=== PATIENT | female | born 1940 | race Caucasian/White ===

== ENCOUNTER → 2018-04-06 | Outpatient (CLI) | payer MEDICARE, OTHER | LOC: GMAH 10:37 | PROVIDERS: ATTEND Family Medicine | DX: I10 Essential (primary) hypertension (principal) ==

== ENCOUNTER → 2019-11-23 | Outpatient (CLI) | payer MEDICARE, OTHER | LOC: GMA MATASK 11:05 | PROVIDERS: ATTEND Family Medicine | DX: I10 Essential (primary) hypertension (principal) ==

== ENCOUNTER 2020-01-23 13:50 | Inpatient (IN) | payer MEDICARE, OTHER ==
--- NOTE | 2020-01-23 14:48 | RAD ---
EXAM DESCRIPTION: Abdomen Series CLINICAL HISTORY: 79 years Female, decreased po, hypoxia COMPARISON: November 23, 2019 Findings: Two view(s)/radiograph(s) Cardiomegaly. Pulmonary vascular congestion. No pneumothorax. No pleural effusion. Diffuse bilateral interstitial airspace disease. No free air beneath the diaphragm. Nonobstructive bowel gas pattern. No suspicious calcification. No air-fluid level. No acute osseous abnormality. IMPRESSION: CHF with diffuse bilateral interstitial airspace disease which may be pulmonary edema or pneumonia. Electronically signed by: Nj Arteaga MD 01/23/2020 2:47 PM TRAVELING SALES REPRESENTATIVE
[2020-01-23] MEDS ORDERED: DEXAMETHASONE INJ 4 MG/ML VIAL IV ONE ×2 (15:46→19:14)
--- NOTE | 2020-01-23 16:39 | CT ---
EXAM DESCRIPTION: CTA Chest CLINICAL HISTORY: 79 years, Female, elevated ddimer, hypoxia COMPARISON: None TECHNIQUE: CT pulmonary angiography is performed with thin-section multi detector technique during rapid bolus administration of 75 mL of Optiray 320 IV contrast media. Multiplanar reformatted images are reviewed along with source images and maximum intensity projection three dimensional images which were created on a separate dedicated workstation and are stored in the patient's medical record. FINDINGS: Normal enhancement of pulmonary arteries. Normal enhancement of cardiac chambers. Early enhancement of the aorta is negative for aneurysm or dissection. Lung window images are positive for extensive groundglass pulmonary infiltrate consistent with pneumonia. Some patchy septal thickening is present. Few areas of consolidation. This could represent viral pneumonia including COVID Negative pneumonia. Correlate with viral titers. Few nodules in the left lower lobe likely infectious granulomas in the lateral basal segment and posterior basal segment measuring up to 7 mm. Follow-up is recommended to ensure stability or clearance. In the upper abdomen, upper abdominal viscera are unremarkable. No chest wall mass or rib fracture. No axillary or lower cervical adenopathy. Coronal and sagittal reformatted MIP images confirm normal pulmonary arterial enhancement. IMPRESSION: Extensive groundglass infiltration of the lungs consistent with pneumonia. Negative for evidence of pulmonary embolic disease. Clustered left lower lobe nodules likely granulomas. Follow-up recommended. This exam was performed according to our departmental dose-optimization program, which includes automated exposure control, adjustment of the mA and/or kV according to patient size and/or use of iterative reconstruction technique. Total DLP equals 742.36 mGycm. Electronically signed by: Lencho Poon MD 01/23/2020 4:38 PM CASINO CASHIER
[2020-01-23] MEDS ORDERED: AZITHROMYCIN IV 500 MG in SODIUM CHLORIDE 0.9% 250ML 250 ML IVPB ONE (16:44)
[2020-01-23] MEDS ORDERED: REMDESIVIR 200 MG in SODIUM CHLORIDE 0.9% 250ML 250 ML IVPB ONE (16:44)
[2020-01-23] MEDS ORDERED: IPRATROPIUM/ALBUTEROL 3 ML VIAL NEB ONE ×2 (16:44→19:25)
[2020-01-23] MEDS ORDERED: cefTRIAXone SODIUM 1 GM in SODIUM CHL 0.9% 50ML MIN-BAG+ 50 ML IVPB ONE (16:44)
[2020-01-23] MEDS ORDERED: SODIUM CHLORIDE 0.9% 1000ML 500 ML IVS ONE (16:46)
--- NOTE | 2020-01-23 16:54 | ED.PDOC ---
History of Present Illness - General Chief Complaint: Respiratory Problem Stated Complaint: Weakness/Shortness of breath Time Seen by Provider: 01/23/20 14:12 Source: patient Exam Limitations: no limitations - History of Present Illness Initial Comments: The patient 79 year-old female presented to emergency room secondary to 3 weeks of symptoms of simply not feeling good that drastically worsened over the last 3 days. Symptoms include mild nausea with some anorexia. The patient did have a runny nose and a cough a couple of weeks ago. She reports dyspnea on exertion for almost all about 3 weeks. Last 3 days however she reports shortness of breath at rest and increased dizziness and severe weakness. She has had increased cough as well over the last 2 days. Questionable fevers. She has had episodes of diaphoresis. Oxygen saturation upon arrival here was 75% on room air. She denies a history of any significant lung disease in the past. She denies a cardiac history. No palpitations no chest pain. No syncope but again possible near syncopal episodes of the last couple of days. Timing/Duration: unsure Severity: severe Improving Factors: rest Worsening Factors: movement Associated Symptoms: cough, headaches, loss of appetite, malaise, nausea/vomiting, shortness of breath, weakness Review of Systems - Review of Systems Constitutional: States: malaise, weakness - Generalized EENTM: States: nose congestion - Several weeks ago Respiratory: States: cough, short of breath Cardiology: States: no symptoms reported Gastrointestinal/Abdominal: States: other - Decreased oral intake Genitourinary: States: no symptoms reported Musculoskeletal: States: no symptoms reported Skin: States: no symptoms reported Neurological: States: headache Endocrine: States: no symptoms reported Hematologic/Lymphatic: States: no symptoms reported All other Systems: No Change from Baseline Past Medical History (General) - Patient Medical History Hx Seizures: No Hx Stroke: No Hx Dementia: No Hx Asthma: No Hx of COPD: No Hx Cardiac Disorders: No Hx Congestive Heart Failure: No Hx Pacemaker: No Hx Hypertension: No Hx Thyroid Disease: No Hx Diabetes: No Hx Gastroesophageal Reflux: No Hx Renal Disease: No Hx Cancer: No Hx of HIV: No Hx Hepatitis C: No Hx MRSA: No Surgical History: no surgical history - Vaccination History Hx Tetanus, Diphtheria Vaccination: No Hx Influenza Vaccination: No Hx Pneumococcal Vaccination: No Immunizations Up to Date: No - Social History Hx Tobacco Use: No Hx Chewing Tobacco Use: No Hx Alcohol Use: No Hx Substance Use: No Hx Substance Use Treatment: No Hx Depression: No Feels Threatened In Home Enviroment: No Feels Threatened In a Relationship: No Hx Physical Abuse: No Hx Emotional Abuse: No Hx Suspected Abuse: No - Female History Patient is a Female of Child Bearing Age (10 -59 yrs old): No - Triage Comment ED Triage Comment: The patient complained of weakness and shortness of breath and was brought from the [facility] to ER bed 5 via wheelchair and assisted into bed. The patient was obvioulsy weak and showed signs of difficulty breathing. Room air O2 was noted at 75% on multiple fingers on both hands and she was placed on a NC at 3lpm and 91% O2 was noted. Family Medical History - Family History Mother Family History: Unknown Living Status: Unknown Physical Exam - Physical Exam General Appearance: Alert, Frail, Ill Appearing Eye Exam: bilateral normal Ears, Nose, Throat: hearing grossly normal, normal pharynx Neck: non-tender, supple Respiratory: respiratory distress, accessory muscle use, rales, rhonchi, wheezing Cardiovascular/Chest: normal peripheral pulses, regular rate, rhythm, no edema Peripheral Pulses: radial,right: 2+, radial,left: 2+ Gastrointestinal/Abdominal: non tender, soft Rectal Exam: deferred Back Exam: no CVA tenderness, no vertebral tenderness Extremity: normal range of motion, non-tender, normal inspection, no pedal edema, normal capillary refill Neurologic: turbo operator II-XII nml as tested, alert, oriented x 3 Skin Exam: pallor Comments: Vital Signs - 24 hr 01/23/20 01/23/20 01/23/20 14:02 14:27 14:51 Temperature 97.9 F Pulse Rate [ 96 H 91 H Pulse Ox] Respiratory 20 20 24 Rate Blood Pressure 188/97 160/99 [Left Arm] O2 Sat by Pulse 75 L 91 L Oximetry 01/23/20 01/23/20 14:52 15:00 Temperature Pulse Rate [ 92 H 96 H Pulse Ox] Respiratory 22 26 H Rate Blood Pressure 142/89 148/80 [Left Arm] O2 Sat by Pulse 90 L 92 L Oximetry Progress - Progress Progress: Chest x-ray shows cardiomegaly and bilateral pneumonia. CT angiogram of the chest shows no evidence of any pulmonary emboli. There is scattered bilateral pneumonia with left lower lobe granulomatous disease that needs to be followed. EKG shows normal sinus rhythm at 88 bpm. Normal axis. Borderline R wave progression. Inverted T wave in lead III only. Borderline QT interval. Mild left atrial dilation. Laboratory Tests 01/23/20 01/23/20 01/23/20 14:47 14:47 14:47 WBC RBC Hgb Hct MCV MCH MCHC RDW Plt Count MPV Absolute Neuts (auto) Absolute Lymphs (auto) Absolute Monos (auto) Absolute Eos (auto) Absolute Basos (auto) Neutrophils % Lymphocytes % Monocytes % Eosinophils % Basophils % PT INR PTT (SP) Fibrinogen 653 H D-Dimer, Quantitative Sodium 132 L Potassium 3.4 L Chloride 92 L Carbon Dioxide 25 Anion Gap 18.4 H BUN 11 Creatinine 0.69 BUN/Creatinine Ratio 15.9 Random Glucose 136 H Serum Osmolality 266.0 L Lactic Acid Calcium 8.4 Magnesium 2.1 Ferritin 820.1 H Total Bilirubin 1.0 AST 56 H ALT 28 Alkaline Phosphatase 74 LD Total 423 H Creatine Kinase 197 H CK-MB (CK-2) 4.2 CK-MB (CK-2) % 2.13 Troponin I 0.10 H* C-Reactive Protein 20.6 H* B-Natriuretic Peptide 161.0 H Serum Total Protein 7.9 Albumin 3.2 Globulin 4.7 H Albumin/Globulin Ratio 0.7 L Amylase 63 Lipase 56 H TSH 01/23/20 01/23/20 01/23/20 14:47 14:47 14:47 WBC 11.1 H RBC 4.68 Hgb 15.3 Hct 44.1 MCV 94.3 MCH 32.7 H MCHC 34.7 RDW 12.7 Plt Count 332 MPV 7.9 Absolute Neuts (auto) 9.90 H Absolute Lymphs (auto) 0.70 L Absolute Monos (auto) 0.40 Absolute Eos (auto) 0.00 Absolute Basos (auto) 0.10 Neutrophils % 89.6 H Lymphocytes % 6.1 L Monocytes % 3.2 Eosinophils % 0.3 L Basophils % 0.8 PT 11.5 H INR 1.16 H PTT (SP) 29.4 Fibrinogen D-Dimer, Quantitative 2820.0 H* Sodium Potassium Chloride Carbon Dioxide Anion Gap BUN Creatinine BUN/Creatinine Ratio Random Glucose Serum Osmolality Lactic Acid 2.3 H Calcium Magnesium Ferritin Total Bilirubin AST ALT Alkaline Phosphatase LD Total Creatine Kinase CK-MB (CK-2) CK-MB (CK-2) % Troponin I C-Reactive Protein B-Natriuretic Peptide Serum Total Protein Albumin Globulin Albumin/Globulin Ratio Amylase Lipase TSH 01/23/20 14:47 WBC RBC Hgb Hct MCV MCH MCHC RDW Plt Count MPV Absolute Neuts (auto) Absolute Lymphs (auto) Absolute Monos (auto) Absolute Eos (auto) Absolute Basos (auto) Neutrophils % Lymphocytes % Monocytes % Eosinophils % Basophils % PT INR PTT (SP) Fibrinogen D-Dimer, Quantitative Sodium Potassium Chloride Carbon Dioxide Anion Gap BUN Creatinine BUN/Creatinine Ratio Random Glucose Serum Osmolality Lactic Acid Calcium Magnesium Ferritin Total Bilirubin AST ALT Alkaline Phosphatase LD Total Creatine Kinase CK-MB (CK-2) CK-MB (CK-2) % Troponin I C-Reactive Protein B-Natriuretic Peptide Serum Total Protein Albumin Globulin Albumin/Globulin Ratio Amylase Lipase TSH 2.80 01/23/20 17:05 The patient is a 79-year-old female with what is most likely coronavirus pneumonia based upon the laboratory work. The swab is a send out and is pending. The D-dimer and CRP are correspondingly elevated. CT angiogram of the chest shows no evidence of pulmonary embolus. The patient is doing much better on supplemental oxygen currently saturating 90 to 93% on 2 L nasal cannula. She is resting much more easily. She is receiving small IV fluid boluses for now as the prolonged hypoxia has given her some mild CHF. The patient does have a troponin leak which corresponds with prolonged hypoxia as well but no evidence of chest pain or what appear to be acute EKG changes. The patient was started on Rocephin, azithromycin, remdesivir, dexamethasone and Lovenox along with the supplemental oxygen. Respiratory distress is greatly improved. Critical care time spent for respiratory distress was 35 minutes. daiana monge [id number] - EKG/XRAY/CT CT Ordered: No CT Interpretation Call Back: No Departure - Departure Clinical Impression: Respiratory distress, Pneumonia due to 2019 novel coronavirus Disposition: Admit Patient Departure Forms: ED Discharge - Pt. Copy, Patient Portal Self Enrollment Referrals: Morteza Elizondo MD [Primary Care Provider] - 1-2 Weeks Decision To Admit - Decistion To Admit Decision to Admit Reason: Medical Nature Decision to Admit Date: 01/23/20 Decision to Admit Time: 17:07
[2020-01-23] MEDS ORDERED: ENOXAPARIN SODIUM 80 MG/0.8 ML SYG SUBCU ONE (17:02)
[2020-01-23] MEDS ORDERED: ALBUTEROL INHALER 64 PUFF/8GM INH ONE (18:18)
[2020-01-23] MEDS ORDERED: IBUPROFEN 200 MG TAB PO ONE (19:25)
[2020-01-23] MEDS ORDERED: ALBUTEROL INHALER 64 PUFF/8GM INH PRN (19:26)
[2020-01-23] MEDS ORDERED: ACETAMINOPHEN 325 MG TAB PO PRN (19:29)
[2020-01-23] MEDS ORDERED: SODIUM CHLORIDE 0.9% (FLUSH) 10 ML SYG IV PRN (19:29)
[2020-01-23] MEDS ORDERED: ONDANSETRON INJ 4 MG/2 ML VIAL IV PRN (19:29)
[2020-01-23] MEDS: ALBUTEROL INHALER 64 PUFF/8GM INH SCH (20:15)
[2020-01-23] MEDS: guaiFENesin ER TAB 600 MG TAB PO SCH (21:36)
[2020-01-23] MEDS: IV SET AND CAP CHANGE INJ INJ SCH (21:46)
[2020-01-23] MEDS ORDERED: ENOXAPARIN SODIUM 40 MG/0.4 ML SYG SUBCU ONE (21:47)
[2020-01-23] MEDS: ENOXAPARIN SODIUM 40 MG/0.4 ML SYG SUBCU SCH (22:19)
[2020-01-24] MEDS: PANTOPRAZOLE SODIUM IV 40 MG VIAL IV SCH (05:31)
--- NOTE | 2020-01-24 07:07 | RAD ---
EXAM: Chest,1 View HISTORY: covid COMPARISON: CTA chest 01/23/2020 TECHNIQUE: Chest 1 View AP FINDINGS: Trachea midline. Heart size normal. Marked hazy bilateral lung opacities. No significant pleural effusion or pneumothorax. Diffuse decreased bone density. IMPRESSION: Marked hazy bilateral lung opacities. Causes include pulmonary edema, subsegmental atelectasis, and Electronically signed by: Mark Moore MD 01/24/2020 7:06 AM MARKSMANSHIP INSTRUCTOR
[2020-01-24] MEDS: ALBUTEROL INHALER 64 PUFF/8GM INH SCH ×3 (12:44→20:20)
--- NOTE | 2020-01-24 12:50 | HP ---
SUPERVISING PHYSICIAN: Noris Newsome MD CHIEF COMPLAINT: Respiratory problems. HISTORY OF PRESENT ILLNESS: This is a 79-year-old female patient who came to the Emergency Room secondary to approximately 2 to 3 weeks of just feeling poorly. It had markedly worsened over the last 3 days. She had some nausea with difficulty eating. She also had a runny nose with cough. She also was very short of breath with any exertion and that had been going on for over 2 to 3 weeks. She also was very weak and was not sure if she had any fevers or not, but she did have some chills and some diaphoresis. On presentation at the Emergency Room, she had 75% O2 saturation on room air. She was placed on oxygen. She denied any significant health history. Her vital signs were temperature 98.9, heart rate 96, blood pressure 188/97, respiratory rate 20, O2 saturation 75% on room air. On 3 liters nasal cannula, she went up to 91%. She also had a respiratory rate that went up to 24 to 26 at rest and was visibly tachypneic. Lab studies were done. WBCs 11.1, hemoglobin 15.3, hematocrit 44.1. She had a left shift on her differential. Fibrinogen was 653 and D-dimer was 2820. Sodium 132, potassium 3.4, chloride 92, BUN 11, creatinine 0.69. Glucose 136, lactic acid 2.3, calcium 8.4, magnesium 2.1, ferritin 82.1. AST 56, LD 423, creatinine kinase 197, troponin 0.1, C-reactive protein 20.6, BNP 161, TSH 2.8. Urinalysis shows trace of intact urine blood, positive urine nitrites, 4 urine urobilinogen, trace of urine leukocyte esterase, 10 to 20 urine WBCs and 2+ urine bacteria. Blood cultures were done. Urine culture was ordered. Her abdominal x-ray shows CHF with diffuse bilateral interstitial airspace disease which may be pulmonary edema or pneumonia. Chest/thorax CTA showed extensive ground glass infiltration of the lungs consistent with pneumonia, negative for evidence of pulmonary embolic disease. Clustered left lower lobe nodules like granulomas, followup recommended. She was given Remdesivir, fluids, Lovenox, Decadron, azithromycin and Rocephin in the ER and admitted to the hospital. PAST MEDICAL HISTORY: 1. Hypertension on no medications. 2. Hyperlipidemia on no medications. PAST SURGICAL HISTORY: 1. section x1. OUTPATIENT MEDICATIONS: No home medications. ALLERGIES: NO KNOWN DRUG ALLERGIES. FAMILY HISTORY: Positive for brain tumor, coronary artery disease, type 2 diabetes. SOCIAL HISTORY: She is retired. She lives in [place]. She has 3 children. She denies any tobacco, ETOH or illicit drug use. REVIEW OF SYSTEMS: GENERAL: Positive for fever, fatigue. Negative for weight changes. HEENT: Positive for nasal drainage and congestion. Negative for sore throat, vision changes or ear pain. RESPIRATORY: Positive for wheezing, coughing and shortness of breath. CARDIAC: Negative for chest pain, palpitations or tachycardia. GASTROINTESTINAL: Positive for anorexia and mild nausea. Negative for vomiting, diarrhea or constipation. GENITOURINARY: Negative for hematuria, dysuria or polyuria. MUSCULOSKELETAL: Negative for arthralgias, myalgias. SKIN: Negative for lesions or rashes. NEUROLOGIC: Positive for headaches and weakness. Negative for seizures. PHYSICAL EXAMINATION: VITAL SIGNS: Temperature 97.8, heart rate 93, blood pressure 143/86, respiratory rate 26 to 32, O2 saturation 90-92% on 3 liters nasal cannula. GENERAL: This is a 79-year-old obese female who is lying in her hospital bed. She is moderate respiratory distress. HEENT: Normocephalic, atraumatic. Pupils are equal and reactive. Oropharynx is clear. NECK: Supple. RESPIRATORY: Scattered rhonchi and expiratory wheezes throughout. She is in moderate respiratory distress and using accessory muscles. She is visibly tachypneic. She can only speak in 1 to 2 word phrases. CARDIOVASCULAR: Regular rate and rhythm. GASTROINTESTINAL: Abdomen is soft, nondistended, nontender. Bowel sounds are positive. EXTREMITIES: No cyanosis, clubbing or edema. NEUROLOGIC: Awake, alert and oriented times three. Cranial nerves II-XII are grossly intact as tested. LABORATORY: Labs and films are as per history of present illness. IMPRESSION: 1. COVID-19 pneumonitis with concerns for developing community acquired pneumonia. 2. Urinary tract infection. 3. Sepsis related to #1 and #2 with respiratory rate in the upper 20s to low 30s with O2 saturation of 75%. WBCs were 11,200 and she had a left shift on differential. Her heart rate did get as high as 112. 4. Congestive heart failure of unknown etiology. No echocardiogram to review at this time. 5. Left lower lobe pulmonary nodules per CT scan, will need followup at discharge. 6. Elevated troponin without chest pain or EKG changes, most likely due to hypoxia. PLAN: I have admitted the patient to the hospital. She will be started on the pneumonia and COVID guidelines including medications and labs. Medications will include ceftriaxone, azithromycin, Remdesivir, Lovenox, Decadron, Align and Mucinex. She will have aggressive pulmonary hygiene including albuterol nebulizers both p.r.n. and scheduled. I will put her on congestive heart failure guidelines and get testing including echocardiogram. She will need a followup with Dr. Elizondo on discharge due to the left lower lobe nodules per CT scan. #[id number] [facility]
[2020-01-24] MEDS: DEXAMETHASONE INJ 10 MG/ML VIAL IV SCH (13:39)
[2020-01-24] MEDS: AZITHROMYCIN IV 500 MG in SODIUM CHLORIDE 0.9% 250ML 250 ML IVPB SCH (13:39)
[2020-01-24] MEDS: guaiFENesin ER TAB 600 MG TAB PO SCH ×2 (13:40→20:21)
[2020-01-24] MEDS: cefTRIAXone SODIUM 1 GM in SODIUM CHL 0.9% 50ML MIN-BAG+ 50 ML IVPB SCH (13:40)
[2020-01-24] MEDS ORDERED: IPRATROPIUM/ALBUTEROL 3 ML VIAL INH PRN (15:56)
[2020-01-24] MEDS ORDERED: NITROGLYCERIN 0.4 MG 25 EA TAB SL PRN (15:56)
--- NOTE | 2020-01-24 16:54 | PN ---
SUPERVISING PHYSICIAN: Noris Newsome MD DATE: 01/24/20 SUBJECTIVE: The patient is lying in bed. She is quite tachypneic and short of breath. We have had to change her from high flow to BiPAP. She does answer some simple questions at this time. OBJECTIVE: VITAL SIGNS: Temperature 98, heart rate 73, blood pressure 138/85, respiratory rate 18, O2 saturation 91% on 8 liters high flow nasal cannula. She is at 96% on 70% on the BiPAP. RESPIRATORY: Diminished breath sounds throughout with a few scattered rhonchi and expiratory wheezes. CARDIAC: Regular rate and rhythm. NEUROLOGIC: She is awake, but somewhat lethargic, slightly anxious. She answers simple yes/no questions appropriately. LABORATORY: WBCs 10.8, hemoglobin 14.4, hematocrit 40.7. She has a left shift on differential. Fibrinogen 633, D-dimer 2050. Electrolytes are basically within normal limits except her calcium is low at 8.2. Lactic acid 1.9. AST 47, LD 365, creatinine kinase 182, troponin improved to 0.09 with C-reactive protein 18.9. MICROBIOLOGY: Preliminary blood cultures show no growth after 24 hours. Preliminary urine culture shows no growth after 24 hours. RADIOLOGY: Chest x-ray shows marked hazy bilateral lung opacities. Causes include pulmonary edema, subsegmental atelectasis. All other labs and films have been reviewed via the EMR. ASSESSMENT: 1. COVID-19 pneumonitis with concerns for developing community acquired pneumonia. 2. Urinary tract infection. 3. Sepsis related to #1 and #2 with respiratory rate in the upper 20s to low 30s with O2 saturation of 75%. WBCs were 11,200 and she had a left shift on differential. Her heart rate did get as high as 112. 4. Congestive heart failure of unknown etiology. No echocardiogram to review at this time. 5. Left lower lobe pulmonary nodules per CT scan, will need followup at discharge. 6. Elevated troponin without chest pain or EKG changes, most likely due to hypoxia. PLAN: We will continue present supportive care including COVID guidelines, medications and lab. We have placed a Callejas catheter and given her an extra dose of Lasix. I will repeat her lab and chest x-ray in the morning. I have also ordered an echocardiogram. She will also use BiPAP as needed and we will continue to titrate oxygen as tolerated. Continue with aggressive pulmonary hygiene. #[id number] [facility]
[2020-01-24] MEDS: FUROSEMIDE INJ 40 MG/4 ML VIAL IV SCH (17:04)
[2020-01-24] MEDS: REMDESIVIR 100 MG in SODIUM CHLORIDE 0.9% 250ML 250 ML IVPB SCH (17:05)
[2020-01-24] MEDS: IPRATROPIUM/ALBUTEROL 3 ML VIAL INH SCH ×2 (18:01→20:20)
[2020-01-24] MEDS ORDERED: ENOXAPARIN SODIUM 40 MG/0.4 ML SYG SUBCU ONE (19:43)
[2020-01-24] MEDS ORDERED: FUROSEMIDE INJ 20 MG/2 ML VIAL ONE (19:43)
[2020-01-24] MEDS: ENOXAPARIN SODIUM 40 MG/0.4 ML SYG SUBCU SCH (20:21)
[2020-01-24] MEDS ORDERED: FUROSEMIDE INJ 20 MG/2 ML VIAL IV ONE (21:00)
[2020-01-25] MEDS: PANTOPRAZOLE SODIUM IV 40 MG VIAL IV SCH (05:52)
--- NOTE | 2020-01-25 06:38 | RAD ---
CHEST, ONE VIEW XR CLINICAL HISTORY: covid COMPARISON: Chest 01/24/2020. TECHNIQUE: AP Chest. FINDINGS: Multifocal bilateral airspace opacities persist. This appears slightly improved in the left upper lobe and right upper lobe. No pneumothorax or pleural fluid. Heart is mildly enlarged. Normal cardiomediastinal contours. Unremarkable soft tissues and bones. IMPRESSION: 1. Persistent diffuse bilateral pulmonary infiltrates, slightly improved in the upper lobes. Electronically signed by: Radha Guillen DO 01/25/2020 6:36 AM MUSICAL INSTRUMENT MAKER OR REPAIRER
[2020-01-25] MEDS: guaiFENesin ER TAB 600 MG TAB PO SCH ×2 (08:46→20:29)
[2020-01-25] MEDS: DEXAMETHASONE INJ 10 MG/ML VIAL IV SCH (08:46)
[2020-01-25] MEDS: AZITHROMYCIN IV 500 MG in SODIUM CHLORIDE 0.9% 250ML 250 ML IVPB SCH (08:46)
[2020-01-25] MEDS: FUROSEMIDE INJ 40 MG/4 ML VIAL IV SCH ×2 (08:46→17:46)
[2020-01-25] MEDS: cefTRIAXone SODIUM 1 GM in SODIUM CHL 0.9% 50ML MIN-BAG+ 50 ML IVPB SCH (08:46)
[2020-01-25] MEDS: IPRATROPIUM/ALBUTEROL 3 ML VIAL INH SCH ×4 (08:55→21:01)
[2020-01-25] MEDS: ALBUTEROL INHALER 64 PUFF/8GM INH SCH ×3 (08:56→18:46)
[2020-01-25] MEDS ORDERED: PIPERACILLIN/TAZOBACTAM 3.375 GM in SODIUM CHLORIDE 0.9% 100ML 100 ML IVPB SCH (10:30)
[2020-01-25] MEDS: REMDESIVIR 100 MG in SODIUM CHLORIDE 0.9% 250ML 250 ML IVPB SCH (11:20)
[2020-01-25] MEDS: PIPERACILLIN/TAZOBACTAM 3.375 GM in SODIUM CHLORIDE 0.9% 100ML 100 ML IVPB SCH ×2 (15:20→23:44)
--- NOTE | 2020-01-25 18:46 | PN ---
SUPERVISING PHYSICIAN: Noris Newsome MD DATE: 01/25/20 SUBJECTIVE: The patient actually is off BiPAP eating lunch. She doesn't seem to be short of breath or in any distress. She has had no other complaints. OBJECTIVE: VITAL SIGNS: She has been satting on BiPAP at 93%, was able to transition briefly to HiFlow at 14 liters but only maintain 82T. GENERAL: The patient looks to be in no acute distress. She is eating lunch. She is talking in full sentences. CHEST: Lung sounds are diminished therapeutic. No obvious wheezing or rhonchi. CARDIAC: Regular rate and rhythm. ABDOMEN: Obese, soft, non-tender, positive bowel sounds. EXTREMITIES: Without edema. NEUROLOGIC: She is alert and oriented x 3. LABORATORY: White count 10.4, hemoglobin 15.2, hematocrit 43.1. Platelet count 417,000, differential shows a left shift. Coagulation studies show D-dimer down to 1280 compared to 2820 on admission. PTT 20.5, fibrinogen 562 which is also down. Chemistries show normal electrolytes with BUN 22, creatinine 0.66. Lactic acid yesterday was 1.9, calcium and magnesium are normal. Ferritin a little elevated at 736. ALT normal, AST showing slight elevation at 43. C-reactive protein down to 11.3, troponin down from 0.09 to 0.03. Initial troponin on admission was 0.10. MICROBIOLOGY: Final urine culture results show colony count with mixed mark. She does have a set of blood cultures that were showing a gram negative ant. Other set of blood cultures are negative. RADIOLOGY: Chest x-ray this morning per radiology interpretation shows persistent diffuse bilateral pulmonary infiltrates slightly improved in the upper lobes. ASSESSMENT: 1. COVID-19 pneumonitis with concerns for developing community acquired pneumonia. 2. Urinary tract infection with culture showing mixed mark. 3. Gram negative bacteremia. 4. Sepsis secondary to #1 and #2, #3. 5. Congestive heart failure of unknown etiology. No echocardiogram to review at time of admission. 6. Left lower lobe pulmonary nodules per CT scan, will need followup at discharge. 7. Elevated troponin without mentioned chest pains, no EKG changes with troponins now based on levels felt to be secondary to #1, underlying hypoxia. PLAN: We will continue with COVID guidelines, medications, Rocephin and azithromycin have been altered leave azithromycin but will change the Rocephin to Zosyn to cover for the background negative bacteremia waiting on culture results. She is on Remdesivir, Decadron, Protonix, Lasix. She does remain on Lovenox. We will continue to provide aggressive pulmonary hygiene and titrate BiPAP as we can. Hopefully we will be able to titrate her off BiPAP and the HiFlow oxygen within the next 24-48 hours as it looks like her labs are showing some response to treatment and returning to baseline levels. Certainly, if she does become worse,we will have to address that situation as it comes up. At this point, she seems to be doing okay. Until we can transition her to outpatient management, we will continue to monitor and treat as needed. [id number] [facility]TDD
[2020-01-25] MEDS: ENOXAPARIN SODIUM 40 MG/0.4 ML SYG SUBCU SCH (20:29)
[2020-01-26] MEDS: PIPERACILLIN/TAZOBACTAM 3.375 GM in SODIUM CHLORIDE 0.9% 100ML 100 ML IVPB SCH ×3 (06:08→23:03)
[2020-01-26] MEDS: PANTOPRAZOLE SODIUM IV 40 MG VIAL IV SCH (06:09)
[2020-01-26] MEDS: IPRATROPIUM/ALBUTEROL 3 ML VIAL INH SCH ×4 (07:31→20:54)
[2020-01-26] MEDS: FUROSEMIDE INJ 40 MG/4 ML VIAL IV SCH ×2 (09:56→17:28)
[2020-01-26] MEDS: DEXAMETHASONE INJ 10 MG/ML VIAL IV SCH (09:57)
[2020-01-26] MEDS: AZITHROMYCIN IV 500 MG in SODIUM CHLORIDE 0.9% 250ML 250 ML IVPB SCH (09:57)
[2020-01-26] MEDS: guaiFENesin ER TAB 600 MG TAB PO SCH ×2 (09:57→20:19)
[2020-01-26] MEDS ORDERED: SODIUM CHLORIDE 0.9% 250ML 250 ML ONE (11:56)
[2020-01-26] MEDS ORDERED: REMDESIVIR IV 100 MG VIAL ONE (11:56)
[2020-01-26] MEDS: REMDESIVIR 100 MG in SODIUM CHLORIDE 0.9% 250ML 250 ML IVPB SCH (12:18)
--- NOTE | 2020-01-26 15:23 | PN ---
SUPERVISING PHYSICIAN: Noris Newsome MD DATE: 01/26/20 SUBJECTIVE: The patient is still requiring BiPAP. She is actually able to come off BiPAP for lunch and short times. I have talked to respiratory and encouraged working with her to prone her as much as possible to tolerate. She is not really in distress but she certainly is still requiring support with BiPAP. She has not had any chest pain or nausea.. OBJECTIVE: VITAL SIGNS: Temperature 97.5, pulse 87, blood pressure 128/76, respirations 24, oxygen saturation 96% on BiPAP at rest on 70% FI02. GENERAL: The patient looks to be in no acute distress. She is eating lunch. She is talking in full sentences. CHEST: Lung sounds are diminished therapeutic. No obvious wheezing or rhonchi. CARDIAC: Regular rate and rhythm. ABDOMEN: Obese, soft, non-tender, positive bowel sounds. EXTREMITIES: Without edema. NEUROLOGIC: She is alert and oriented x 3. LABORATORY: Hemoglobin 14.5, hematocrit 40.5. Platelet count 459,000, white count 10.3. Coagulation studies show D-dimer down to 1200. Chemistries show potassium 3.1, creatinine 0.61, potassium normal at 8.4. Liver functions remain within normal limits. C-reactive protein down to 5.9 compared to 11.3 yesterday. MICROBIOLOGY: Blood cultures did show an E. coli with the final sensitivities pending. RADIOLOGY: No additional radiographic studies today. ASSESSMENT: 1. COVID-19 pneumonitis with concerns for developing community acquired pneumonia. 2. Urinary tract infection with culture showing mixed mark. 3. Gram negative bacteremia. 4. Sepsis secondary to #1 and #2, #3. 5. Congestive heart failure of unknown etiology. No echocardiogram to review at time of admission. 6. Left lower lobe pulmonary nodules per CT scan, will need followup at discharge. 7. Elevated troponin without mentioned chest pains, no EKG changes with troponins now based on levels felt to be secondary to #1, underlying hypoxia. PLAN: We will continue with current plan of care with antibiotic coverage with azithromycin and Zosyn on extended infusion. She is on Lovenox, Lasix, Remdesivir, Decadron. We will continue on aggressive pulmonary hygiene, work to prone her as much as possible that she will tolerate. At this point, I think treatment is going to be dependent on aggressive pulmonary hygiene. Will certainly monitor closely as she continues to require ongoing increase in her FI02 and her physical efforts become labored, will certainly need to look checking ABG and making changes from there. Until we can transition her to outpatient management, we will continue to monitor and treat as needed. #[id number] [facility]
[2020-01-26] MEDS: IV SET AND CAP CHANGE INJ INJ SCH (19:49)
[2020-01-26] MEDS: ENOXAPARIN SODIUM 40 MG/0.4 ML SYG SUBCU SCH (20:19)
[2020-01-27] MEDS ORDERED: PANTOPRAZOLE SODIUM TAB 40 MG PO ONE (04:34)
--- NOTE | 2020-01-27 06:16 | RAD ---
CHEST, ONE VIEW XR CLINICAL HISTORY: COVID PNA COMPARISON 01/25/2020: [] TECHNIQUE: AP Chest. FINDINGS: Heart is mildly enlarged. There are patchy airspace opacities throughout the left lung and to a lesser degree right lung without significant change. No pneumothorax or pleural fluid. Moderate thoracic degenerative change. Unremarkable soft tissues. IMPRESSION: 1. Stable chest exam. Electronically signed by: Radha Guillen DO 01/27/2020 6:15 AM MACHINE REPAIRER
[2020-01-27] MEDS: PANTOPRAZOLE SODIUM TAB 40 MG PO SCH (06:23)
[2020-01-27] MEDS: PIPERACILLIN/TAZOBACTAM 3.375 GM in SODIUM CHLORIDE 0.9% 100ML 100 ML IVPB SCH (06:23)
[2020-01-27] MEDS: DEXAMETHASONE INJ 10 MG/ML VIAL IV SCH (09:15)
[2020-01-27] MEDS: FUROSEMIDE INJ 40 MG/4 ML VIAL IV SCH ×2 (09:15→16:55)
[2020-01-27] MEDS: guaiFENesin ER TAB 600 MG TAB PO SCH ×2 (09:15→20:21)
[2020-01-27] MEDS: AZITHROMYCIN IV 500 MG in SODIUM CHLORIDE 0.9% 250ML 250 ML IVPB SCH (09:16)
[2020-01-27] MEDS: IPRATROPIUM/ALBUTEROL 3 ML VIAL INH SCH ×4 (09:50→21:03)
[2020-01-27] MEDS: REMDESIVIR 100 MG in SODIUM CHLORIDE 0.9% 250ML 250 ML IVPB SCH (12:02)
[2020-01-27] MEDS ORDERED: POTASSIUM CHLORIDE 20 MEQ TAB PO ONE (13:51)
[2020-01-27] MEDS ORDERED: levoFLOXacin 750MG IV 750 MG in PREMIX BAG 1 BAG IVPB ONE (14:04)
--- NOTE | 2020-01-27 19:18 | PN ---
SUPERVISING PHYSICIAN: Noris Newsome MD DATE: 01/27/20 SUBJECTIVE: The patient seems to be doing okay today. She is not quite as tired but she is still requiring BiPAP and respiratory assistance. She is able to tolerate it for a short period of time on high flow to take meals but otherwise, requires it at times. She still remains on FI02 at 70%. She does indicate that she is feeling a little bit better. OBJECTIVE: VITAL SIGNS: Temperature 97.2, pulse 91, blood pressure 123/80, respirations 21, oxygen saturation 93% on high flow nasal cannula at 15 liters and on BiPAP she sats 98%, FI02 of 70%. GENERAL: The patient looks to be in no acute distress. She is eating lunch. She is talking in full sentences. CHEST: Lung sounds are diminished therapeutic. No obvious wheezing or rhonchi. CARDIAC: Regular rate and rhythm. ABDOMEN: Obese, soft, non-tender, positive bowel sounds. EXTREMITIES: Without edema. NEUROLOGIC: She is alert and oriented x 3. LABORATORY: Her D-dimer is elevated at 1540 compared to yesterday at 1200. We did not repeat a CBC today. Chemistries show a little low potassium at 2.9, creatinine 0.64, calcium 8.4, magnesium normal at 2.3. MICROBIOLOGY: Final blood cultures did show an E. coli in 2 of the bottles that was sensitive to all but ampicillin and Unasyn. Final urine culture showed contamination. RADIOLOGY: Chest x-ray today per radiology interpretation shows stable exam with patchy airspace opacities throughout the left lung, to a lesser degree in the right. No significant change. ASSESSMENT: 1. COVID-19 pneumonitis with concerns for developing community acquired pneumonia. 2. Urinary tract infection with culture showing mixed mark. 3. Gram negative bacteremia due to E. coli with resistance to penicillin/, change in medications to Levaquin based off sensitivity. 4. Sepsis secondary to #1 and #2, #3. 5. Congestive heart failure of unknown etiology. No echocardiogram to review at time of admission. 6. Electrolyte imbalance to include hypokalemia secondary to diuresis with Lasix. 7. Left lower lobe pulmonary nodules per CT scan, will need followup at discharge. 8. Elevated troponin without mentioned chest pains, no EKG changes with troponins now based on levels felt to be secondary to #1, underlying hypoxia. PLAN: I have changed her to Levaquin on her antibiotic coverage due to sensitivity report. She was on Zosyn but it was showing resistance to Unasyn. We will give her 750 mg initial dose of Levaquin based on the kidney function and give her 500 daily. She does remain on Decadron. She has finished Remdesivir. She has finished azithromycin and I have taken her off all antibiotics except for Levaquin. She does have a Callejas which will remain in place due to the fact that she is requiring persistent BiPAP assistance for respiratory effort and desats pretty quickly when she gets up. Still diurese her with Lasix and will watch her I&Os closely. I have replaced her potassium with oral potassium today. Will recheck labs in the morning and I will go ahead and start her on some oral potassium scheduled. Hopefully, we will be able to start getting her down of her BiPAP and get her in high flow oxygen. Until we can transition him to outpatient management, we will continue to monitor and treat as needed. [facility][id number] [facility]
[2020-01-27] MEDS: ENOXAPARIN SODIUM 40 MG/0.4 ML SYG SUBCU SCH (20:21)
[2020-01-28] MEDS: PANTOPRAZOLE SODIUM TAB 40 MG PO SCH (05:54)
[2020-01-28] MEDS: DEXAMETHASONE INJ 10 MG/ML VIAL IV SCH (09:22)
[2020-01-28] MEDS: FUROSEMIDE INJ 40 MG/4 ML VIAL IV SCH ×2 (09:23→17:36)
[2020-01-28] MEDS: POTASSIUM CHLORIDE 20 MEQ TAB PO SCH (09:23)
[2020-01-28] MEDS: guaiFENesin ER TAB 600 MG TAB PO SCH ×2 (09:23→20:32)
[2020-01-28] MEDS: levoFLOXacin 500MG IV 500 MG in PREMIX BAG 1 BAG IVPB SCH (09:24)
[2020-01-28] MEDS: IPRATROPIUM/ALBUTEROL 3 ML VIAL INH SCH ×2 (09:28→13:26)
[2020-01-28] MEDS: APIXABAN 5 MG TAB PO SCH ×2 (11:59→20:33)
--- NOTE | 2020-01-28 16:00 | PN ---
SUPERVISING PHYSICIAN: Noris Newsome MD DATE: 01/28/20 SUBJECTIVE: The patient is doing pretty well off BiPAP. She is sitting in a chair. She is maintaining her 02 saturations on high flow with cannula. OBJECTIVE: VITAL SIGNS: Temperature 96.6, pulse 83, blood pressure 112/72, respirations 20, oxygen saturation 92% on 15 liters high flow.. GENERAL: The patient looks to be resting comfortably, in no distress. She is not quite as short of breath as she was yesterday. CHEST: Lung sounds are remain a little bit more aerated today but sill diminished towards the bases. No obvious rhonchi, rales, or wheezes. CARDIAC: Regular rate and rhythm. ABDOMEN: Soft, non-tender, positive bowel sounds. EXTREMITIES: Without edema. NEUROLOGIC: She is alert and oriented x 3. LABORATORY: White count 9,100. Hemoglobin 14. hematocrit 37.3, platelet count 466,000. Differential shows left shift. Coagulation studies still show D-dimer elevated at 1830 today. Chemistries show sodium 132, potassium 3.3, yesterday at 2.9. Bun 20, creatinine 0.51, calcium 8.3. MICROBIOLOGY: No new specimens other than yesterday with the E. coli. . RADIOLOGY: No additional radiographic studies today.. ASSESSMENT: 1. COVID-19 pneumonitis with concerns for developing community acquired pneumonia. 2. Urinary tract infection with culture showing mixed mark. 3. Gram negative bacteremia due to E. coli with resistance to penicillin/, change in medications to Levaquin based off sensitivity. 4. Sepsis secondary to #1 and #2, #3. 5. Congestive heart failure of unknown etiology. No echocardiogram to review at time of admission. 6. Electrolyte imbalance to include hypokalemia secondary to diuresis with Lasix. 7. Left lower lobe pulmonary nodules per CT scan, will need followup at discharge. 8. Elevated troponin without mentioned chest pains, no EKG changes with troponins now based on levels felt to be secondary to #1, underlying hypoxia. PLAN: Will continue to work to titrate her down off her oxygen. She is on Eliquis. She has been transitioned to Levaquin based off her blood cultures. She is still on Decadron at this point. She is on Protonix and Align. Hopefully, we will continue to be able to titrate her down off her oxygen with anticipation of being able to discharge home on oxygen hopefully within the next 2 or 3 days if not sooner. Until then, we will continue to monitor and treat as needed. #[id number] [facility]
[2020-01-28] MEDS: ALBUTEROL INHALER 64 PUFF/8GM INH SCH ×2 (17:10→20:30)
[2020-01-29] MEDS: ALBUTEROL INHALER 64 PUFF/8GM INH SCH ×6 (04:44→20:10)
[2020-01-29] MEDS: PANTOPRAZOLE SODIUM TAB 40 MG PO SCH (06:07)
[2020-01-29] MEDS: FUROSEMIDE INJ 40 MG/4 ML VIAL IV SCH ×2 (10:29→18:14)
[2020-01-29] MEDS: POTASSIUM CHLORIDE 20 MEQ TAB PO SCH (10:31)
[2020-01-29] MEDS: levoFLOXacin 500MG IV 500 MG in PREMIX BAG 1 BAG IVPB SCH (10:31)
[2020-01-29] MEDS: DEXAMETHASONE INJ 10 MG/ML VIAL IV SCH (10:31)
[2020-01-29] MEDS: guaiFENesin ER TAB 600 MG TAB PO SCH ×2 (10:32→20:05)
[2020-01-29] MEDS ORDERED: APIXABAN 5 MG TAB PO ONE ×2 (10:34→19:10)
[2020-01-29] MEDS: APIXABAN 5 MG TAB PO SCH ×2 (10:35→20:05)
--- NOTE | 2020-01-29 14:01 | PN ---
SUPERVISING PHYSICIAN: Noris Newsome MD DATE: 01/29/20 SUBJECTIVE: The patient had little issues last night with BiPAP and decided not to wear it. She did desat quite often and was actually left on the nasal cannula. This morning, x-rays show that I think we lost a little improvement of her airspaces due to the fact that she wasn't on BiPAP as much as she should have been but she's not in any distress, not having chest pain, no nausea or vomiting. OBJECTIVE: VITAL SIGNS: Temperature 97.5, pulse 94, blood pressure 117/82, respirations 20, oxygen saturation 91 and 92% on nasal cannula at high flow. GENERAL: The patient looks to be resting comfortably, in no distress. She is not quite as short of breath as she was yesterday. CHEST: Lung sounds are remain a little bit more aerated today but sill diminished towards the bases. No obvious rhonchi, rales, or wheezes. CARDIAC: Regular rate and rhythm. ABDOMEN: Soft, non-tender, positive bowel sounds. EXTREMITIES: Without edema. NEUROLOGIC: She is alert and oriented x 3. LABORATORY: Chemistries show sodium 133, potassium 3.6, creatinine 0.59, calcium 8.3. RADIOLOGY: Chest x-ray per radiology interpretation shows no improvement in the appearance of the lungs when compared to previous study. ASSESSMENT: 1. COVID-19 pneumonitis with associated pneumonia. 2.. Gram negative bacteremia secondary to E. coli with, patient on Levaquin based off sensitivities. 3. Sepsis secondary to #1 and #2, on Levaquin. 5. Congestive heart failure of unknown etiology. Echocardiogram pending. 6. Mild electrolyte imbalance persistent due to #1 and exacerbated by Lasix. 7. Left lower lobe pulmonary nodules as seen on CT scan initially, will need followup at discharge. 8. Elevated troponin admission secondary to #1 with levels returning to baseline. PLAN: Will continue to be aggressive with her pulmonary hygiene. I have encouraged her to wear her BiPAP as much as possible to help recruit the lung tissues. I think at this point we are on day #6. I did discuss with her that she is going to need some rehabilitation, most certainly for physical activity levels as she is certainly deconditioned and will need long-term pulmonary rehabilitation. Therefore, I think a discussion should be to get her recruited to [facility] for post-Covid management. Until then, we will continue to help titrate her down off BiPAP. Hopefully, she will be able to recruit some more lung tissue and be okay on high flow nasal cannula. She remains on Eliquis. Her Callejas does remain in place due to her significant weakness at this point and easily desaturation with any ambulation. She remains on Lovenox for antibiotic coverage and Decadron. We will continue to monitor labs as needed and hopefully be able to transition her to outpatient management in the next 2 or 3 days. Until then, we will continue to monitor and treat as needed.. #[id number] [facility]
[2020-01-29] MEDS: IV SET AND CAP CHANGE INJ INJ SCH (19:32)
[2020-01-30] MEDS: ALBUTEROL INHALER 64 PUFF/8GM INH SCH ×6 (04:00→20:30)
[2020-01-30] MEDS: PANTOPRAZOLE SODIUM TAB 40 MG PO SCH (06:33)
[2020-01-30] MEDS ORDERED: APIXABAN 5 MG TAB PO ONE (08:33)
[2020-01-30] MEDS: POTASSIUM CHLORIDE 20 MEQ TAB PO SCH (10:31)
[2020-01-30] MEDS: DEXAMETHASONE INJ 10 MG/ML VIAL IV SCH (10:32)
[2020-01-30] MEDS: APIXABAN 5 MG TAB PO SCH ×2 (10:32→20:50)
[2020-01-30] MEDS: guaiFENesin ER TAB 600 MG TAB PO SCH ×2 (10:32→20:50)
[2020-01-30] MEDS: FUROSEMIDE INJ 40 MG/4 ML VIAL IV SCH ×2 (10:32→17:20)
[2020-01-30] MEDS: levoFLOXacin 500MG IV 500 MG in PREMIX BAG 1 BAG IVPB SCH (10:33)
--- NOTE | 2020-01-30 15:11 | PN ---
SUPERVISING PHYSICIAN: Timoteo Lynch MD DATE: 01/30/20 SUBJECTIVE: The patient is still requiring BiPAP, but she is doing okay. She is quite weak. She needs some rehab at this point. She is actually able to get off BiPAP intermittently and maintain O2 saturations at least 92% on 10 liter high flow. She has not had any other complaints other than just generalized weakness. OBJECTIVE: VITAL SIGNS: Temperature 97.9, pulse 78, blood pressure 120/87, respirations 20, oxygen saturation 99% on BiPAP at 70% FIO2 and able to maintain 92% on high flow nasal cannula at 10 liters at times. GENERAL: The patient looks to be resting comfortably, in no distress. She is not quite as short of breath as she was yesterday. CHEST: Lung sounds are remain a little bit more aerated today but sill diminished towards the bases. No obvious rhonchi, rales, or wheezes. CARDIAC: Regular rate and rhythm. ABDOMEN: Soft, nontender, positive bowel sounds. EXTREMITIES: Without edema. NEUROLOGIC: She is alert and oriented x 3. LABORATORY: No additional labs today. RADIOLOGY: No additional radiographic studies today. ASSESSMENT: 1. COVID-19 pneumonitis with associated pneumonia. 2. Gram negative bacteremia secondary to E. coli with, patient on Levaquin based off sensitivities. 3. Sepsis secondary to #1 and #2, on Levaquin. 5. Congestive heart failure of unknown etiology. Echocardiogram pending. 6. Mild electrolyte imbalance persistent due to #1 and exacerbated by Lasix. 7. Left lower lobe pulmonary nodules as seen on CT scan initially, will need followup at discharge. 8. Elevated troponin admission secondary to #1 with levels returning to baseline. PLAN: Will continue with current plan of care with good bronchial hygiene. She remains on Levaquin for the underlying gram negative bacteremia with E. coli. We are still working to get her off BiPAP and onto high flow if possible. I did get a referral into [facility] as at this point I think it is just fpc maintenance to get her back to physical conditioning and to get her off of BiPAP with some pulmonary rehab. She does remain with a Callejas catheter in place. I think this could probably come out tomorrow if she is doing a little bit better. She has not made a lot of progress, but she has certainly not made any declines in the last 24 hours. We will get some labs in the morning. She does remain on Levaquin and she should be finishing up Decadron dosing fairly soon. She is on Eliquis. She is on a little Ativan for some anxiety and she is on Protonix. Hopefully, we will be able to transition her to outpatient management in the next 24 to 48 hours. Until the patient can transition to outpatient management, we will continue to monitor and treat as needed. [facility][id number] [facility]
[2020-01-31] MEDS: ALBUTEROL INHALER 64 PUFF/8GM INH SCH ×6 (00:30→21:30)
[2020-01-31] MEDS: PANTOPRAZOLE SODIUM TAB 40 MG PO SCH (06:12)
--- NOTE | 2020-01-31 06:42 | RAD ---
EXAM DESCRIPTION: Chest,1 View CLINICAL HISTORY: 79 years Female, covid PNA COMPARISON: 01/29/2020 TECHNIQUE: Single AP chest radiograph. FINDINGS: Persistent bilateral pulmonary opacities, slightly decreased in the left lung.. No pneumothorax or pleural effusion. Stable cardiomediastinal contour. Normal osseous structures. IMPRESSION: 1. Persistent bilateral pulmonary opacities, slightly decreased in the left lung. Electronically signed by: Dyllan Overton MD 01/31/2020 6:40 AM LAMP MECHANIC
[2020-01-31] MEDS: DEXAMETHASONE INJ 10 MG/ML VIAL IV SCH (09:48)
[2020-01-31] MEDS: POTASSIUM CHLORIDE 20 MEQ TAB PO SCH (09:48)
[2020-01-31] MEDS: APIXABAN 5 MG TAB PO SCH ×2 (09:49→21:22)
[2020-01-31] MEDS: FUROSEMIDE INJ 40 MG/4 ML VIAL IV SCH ×2 (09:49→16:57)
[2020-01-31] MEDS: levoFLOXacin 500MG IV 500 MG in PREMIX BAG 1 BAG IVPB SCH (09:49)
[2020-01-31] MEDS: guaiFENesin ER TAB 600 MG TAB PO SCH ×2 (09:49→21:23)
--- NOTE | 2020-01-31 11:08 | PN ---
SUPERVISING PHYSICIAN: Timoteo Lynch MD DATE: 01/31/20 SUBJECTIVE: The patient states she is a little bit less short of breath than she was although she still feels extremely weak. She has been taken off noninvasive ventilation and was off of it all night. She utilized high flow oxygen and did fairly well. OBJECTIVE: VITAL SIGNS: Blood pressure 137/87, heart rate 78, respiratory rate 22, temperature 97.8, oxygen saturation 93% on 8 liters via nasal cannula. GENERAL: Ms. Mosqueda is a 79-year-old female who is ill in appearance, but in no active distress. NEUROLOGIC: The patient is alert. LUNGS: Diminished. CARDIOVASCULAR: Regular rate and rhythm. Normal S1, S2. ABDOMEN: Soft, obese. Positive bowel sounds. EXTREMITIES: Lower extremities with no edema. Pulses 2+. Capillary refill is less than 2 seconds. LABORATORY: D-dimer 1,140. Chemistry with sodium 130, potassium 4.0, chloride 91, CO2 29, BUN 23, creatinine 0.52, glucose 129, calcium 9.2. CRP down to 2.2. RADIOLOGY: Chest x-ray shows persistent bilateral pulmonary opacities which are slightly decreased on the left side. ASSESSMENT: 1. COVID-19 pneumonitis. 2. Acute hypoxemic respiratory failure secondary to #1. 3. Escherichia coli bacteremia on levofloxacin. 4. Congestive heart failure. 5. Electrolyte imbalance. 6. Left lower lobe pulmonary nodule as seen on CT scan that will need outpatient followup. PLAN: The patient has slightly improved to high flow from noninvasive ventilation. We will continue to wean oxygen as tolerated. We will continue levofloxacin due to the E. coli bacteremia. She will need 14 days total of that and it was started on 01/28/20, I believe. The patient will need [facility], however, we need to continue wean her oxygen to a level that she can be transferred. She is still requiring too much oxygen to go at this time and still too weak really to take her catheter out due to the fact that she gets really short of breath with exertion. We will recheck her labs tomorrow. [id number] [facility]
[2020-02-01] MEDS: ALBUTEROL INHALER 64 PUFF/8GM INH SCH ×6 (00:30→21:00)
[2020-02-01] MEDS: PANTOPRAZOLE SODIUM TAB 40 MG PO SCH (06:13)
[2020-02-01] MEDS: POTASSIUM CHLORIDE 20 MEQ TAB PO SCH (07:25)
--- NOTE | 2020-02-01 07:52 | RAD ---
EXAM: XR Chest, 1 View CLINICAL HISTORY: The patient is 79 years old and is Female; hypoxia/COVID TECHNIQUE: Frontal view of the chest. COMPARISON: Chest x-ray 01/31/2020. FINDINGS: Lungs: Diffuse bilateral airspace disease, left greater than right, and more extensive compared to the prior exam. Left hemidiaphragm is partially obscured suggesting new/worsening left lower lobe consolidation or atelectasis. Pleural space: Unremarkable. No pneumothorax. Heart: Unremarkable. No cardiomegaly. Mediastinum: Unremarkable. Bones/joints: Unremarkable. IMPRESSION: 1. Diffuse bilateral airspace disease, left greater than right, and more extensive compared to the prior exam. 2. Left hemidiaphragm is partially obscured suggesting new/worsening left lower lobe consolidation or atelectasis. Electronically signed by: Joseph Montelongo MD 02/01/2020 7:51 AM BARREL WASHER MACHINE
[2020-02-01] MEDS: levoFLOXacin 500MG IV 500 MG in PREMIX BAG 1 BAG IVPB SCH (09:57)
[2020-02-01] MEDS: FUROSEMIDE INJ 40 MG/4 ML VIAL IV SCH (09:57)
[2020-02-01] MEDS: DEXAMETHASONE INJ 10 MG/ML VIAL IV SCH (09:58)
[2020-02-01] MEDS: guaiFENesin ER TAB 600 MG TAB PO SCH ×2 (09:58→20:52)
[2020-02-01] MEDS: APIXABAN 5 MG TAB PO SCH ×2 (09:58→20:51)
--- NOTE | 2020-02-01 10:53 | PN ---
SUPERVISING PHYSICIAN: Timoteo Lynch MD DATE: 02/01/20 SUBJECTIVE: The patient states she feels a little bit better than she did yesterday, not short of breath. She feels like she has a little bit more energy than she did. She is tolerating a diet fairly well. OBJECTIVE: VITAL SIGNS: Blood pressure 131/76, heart rate 81, respiratory rate 18, temperature 98.1, oxygen saturation 93% on 7 liters via nasal cannula. GENERAL: Ms. Mosqueda is a 79-year-old female who is in no active distress. NEUROLOGIC: The patient is alert. LUNGS: Diminished with bibasilar rales. CARDIOVASCULAR: Regular rate and rhythm. Normal S1, S2. ABDOMEN: Soft. Positive bowel sounds. EXTREMITIES: Lower extremities with no significant edema. LABORATORY: White count 10.9, hemoglobin 16, hematocrit 44.9. D-dimer 1,140. Chemistry with CRP 1.1, which is improved from 2.2. Sodium 128, potassium 4.2, chloride 89, BUN24, creatinine 0.58, glucose 115, calcium 9.4. RADIOLOGY: Chest x-ray shows looks to be a little bit worse as far as bilateral opacities. Left lower lobe looks more like atelectasis. ASSESSMENT: 1. COVID-19 pneumonitis. 2. Acute hypoxemic respiratory failure secondary to #1. 3. Escherichia coli bacteremia on levofloxacin. 4. Congestive heart failure. 5. Electrolyte imbalance. 6. Left lower lobe pulmonary nodule as seen on CT scan that will need outpatient followup. PLAN: We will continue to wean off oxygen as tolerated. Continue the Levaquin for E. coli. Sodium is down to 128 today and she has a significant negative balance, so I am going to stop the Lasix for now. If we can get her down to 4 or 5 liters, she can go to [facility] for rehab, but for now she will really need to stay until that time. Once again, she will need 14 days total of levofloxacin for the E. coli bacteremia. As of today, she will need 8 more days. [facility][id number] [facility]
[2020-02-02] MEDS: ALBUTEROL INHALER 64 PUFF/8GM INH SCH ×4 (01:00→12:40)
[2020-02-02] MEDS: IV SET AND CAP CHANGE INJ INJ SCH (01:06)
[2020-02-02] MEDS: PANTOPRAZOLE SODIUM TAB 40 MG PO SCH (06:45)
[2020-02-02] MEDS: POTASSIUM CHLORIDE 20 MEQ TAB PO SCH (08:30)
[2020-02-02] MEDS: guaiFENesin ER TAB 600 MG TAB PO SCH (09:44)
[2020-02-02] MEDS: APIXABAN 5 MG TAB PO SCH (09:44)
[2020-02-02] MEDS: levoFLOXacin 500MG IV 500 MG in PREMIX BAG 1 BAG IVPB SCH (09:45)
[2020-02-02 15:21] VITALS: BP 120/70; TEMP 97; O2SAT 93
--- NOTE | 2020-02-05 11:56 | DS ---
SUPERVISING PHYSICIAN: CAROL LEZAMA MD ADMISSION DIAGNOSES: 1. COVID-19 pneumonitis with concerns for developing community acquired pneumonia. 2. Urinary tract infection. 3. Sepsis related to #1 and #2 with respiratory rate in the upper 20s to low 30s with O2 saturation of 75%. WBCs were 11,200 and she had a left shift on differential. Her heart rate did get as high as 112. 4. Congestive heart failure of unknown etiology. No echocardiogram to review at this time. 5. Left lower lobe pulmonary nodules per CT scan, will need followup at discharge. 6. Elevated troponin without chest pain or EKG changes, most likely due to hypoxia. DISCHARGE DIAGNOSES: 1. COVID-19 pneumonitis. 2. Acute hypoxic respiratory failure secondary to #1. 3. E. coli bacteremia on Levaquin. 4. Congestive heart failure, unknown etiology. 5. Electrolyte imbalance. 6. Left lower lobe pulmonary nodule as seen on CT that will need outpatient followup. HISTORY OF PRESENT ILLNESS: This is a 79-year-old female patient who came to the Emergency Room secondary to about 2 to 3 weeks of feeling poorly. She had worsened 2 to 3 days prior to coming to the Emergency Room. She had nausea and difficulty eating. She also had a runny nose with cough. She was short of breath with any exertion. She wasn't sure if she had any fever but she did have some chills and diaphoresis. She denied any significant health history but according to her primary care physician, she seldom comes to the doctor's office. Her vital signs were temperature 98.9, heart rate 96, blood pressure 188/97, respiratory rate 20, O2 saturation 75% on room air. She was given 3 liters nasal cannula and her oxygen saturation went up to 91%. Her respiratory rate was 24 to 26 at rest and she was visibly tachypneic. Lab studies were done. WBC 11.1, hemoglobin 15.3, hematocrit 44.1. She had a left shift on her differential. Fibrinogen was 653 and D-dimer was 2,820. Sodium 132, potassium 3.4, chloride 92, BUN 11, creatinine 0.69. Glucose 136, lactic acid 2.3, calcium 8.4, magnesium 2.1, ferritin 82.1. AST 56, LD 423, creatinine kinase 197, troponin 0.1, C-reactive protein 20.6, BNP 161, TSH 2.8. Urinalysis shows trace of intact urine blood, positive urine nitrites, 4 urine urobilinogen, trace of urine leukocyte esterase, 10 to 20 urine WBCs and 2+ urine bacteria. Blood cultures were obtained. Urine cultures were ordered. Her abdominal x-ray shows CHF with diffuse bilateral interstitial airspace disease which may be pulmonary edema or pneumonia. Chest/thorax CTA showed extensive ground glass infiltrate of the lungs consistent with pneumonia, negative for evidence of pulmonary embolic disease. Clustered left lower lobe nodules like granulomas, followup recommended. She tested positive for Covid and was given Remdesivir, fluids overnight, Decadron, azithromycin and Rocephin in the Emergency Room and admitted in fair condition to the hospital. HOSPITAL COURSE: The patient continued on the pneumonia Covid guidelines with medications and labs. She had Align and Mucinex as well as Lovenox and a PPI. She had aggressive pulmonary hygiene with albuterol inhalers, both p.r.n. and scheduled. She was also placed on the congestive heart failure guidelines and an echocardiogram was obtained. She became quite tachypneic early in her course of treatment with shortness of breath and she had to go from high flow oxygen to the BiPAP machine. She was continued on the Covid guidelines and she continued multiple days on the BiPAP. She was able to get off of it for eating but other than that, for several days she continued on noninvasive ventilation. Aggressive pulmonary hygiene was continued. She remained fairly stable on the BiPAP for several days. She was changed to Levaquin due to her sensitivity report. She had been on Zosyn but was showing resistance to Unasyn so she was given Levaquin. Her azithromycin had been completed at that time. She continued to have a Callejas catheter which remained in place due to her weakness and shortness of breath. Her electrolytes were replaced as needed. She remained on BiPAP as it became very difficult for her to be weaned off oxygen. She was changed to Eliquis and completed her course of Remdesivir, Decadron. She actually one night decided she was no longer going to wear the BiPAP. She did V-tach quite often while on the nasal cannula. Her x-ray at that time showed little improvement and that may have been due to not being on the BiPAP. She was certainly encouraged to continue and we continued to titrate down her oxygen. [facility] was consulted for rehab due to her long hospital stay. It was felt that she would keep her Callejas catheter in place until she became stronger. She was weaned down to high flow oxygen and then changed. She was accepted to [facility] and was continued on the Levaquin. Today, she has been weaned down to 3 liters nasal cannula and will be discharged to [facility] in [place]. LABORATORY: WBCs started 11,100 and got down as low as 9,100 and is now 11,400. Stable hemoglobin at 16.2 and hematocrit 45.5. She originally had a left shift on her differential that has normalized. D-dimer started at 3,820 and today is 969. Sodium remains slightly low at 129. She has been placed on fluid restriction. Potassium got down as low as 2.9, today is 4.4. When it was low she did get potassium replacement. BUN and creatinine are stable at 20 and 0.6. Calcium was slightly low at 8.3 and is now 9. Magnesium stable at 2.3. C- reactive protein was as high at 20.6 and is now 1. Liver enzymes have normalized and are within normal limits. E. coli was one aerobic and one anaerobic. Chest x-ray showed: 1. Diffuse bilateral airspace disease, left greater than right, and more extensive compared to the prior exam. 2, Left hemidiaphragm is partially obscured suggesting new/worsening left lower lobe consolidation or atelectasis. DISCHARGE PLAN: The patient will be discharged to [facility]. She is to resume her previous diet and activity can be tolerated and as per physical therapy. She should have a followup appointment with Dr. Elizondo in a week after her discharge from [facility]. In addition to her routine medications, she is to have 14 days of Eliquis. At her followup appointment it was recommended that Dr. Elizondo reevaluate her need for anticoagulants and she will also need a followup to that CT due to the left lower lobe pulmonary nodule. She is to return to the hospital or followup with Dr. Elizondo for any problems or complications. DISCHARGE MEDICATIONS: 1. Pantoprazole. 2. Albuterol inhaler. 3. Eliquis. #[id number] MTDD
== END 2020-02-02 14:55 | DRG 871 ==
LOC: ER 13:50 → MS 18:17 → OBSVTOIN 18:17
PROVIDERS: ADMIT Nurse Practitioner Acute Care; ATTEND Nurse Practitioner Acute Care
PROC: B32T1ZZ Computerized Tomography (CT Scan) of Left Pulmonary Artery using Low Osmolar Contrast (ICD-10-PCS; principal; 2020-01-23)
PROC: B32S1ZZ Computerized Tomography (CT Scan) of Right Pulmonary Artery using Low Osmolar Contrast (ICD-10-PCS; 2020-01-23)
PROC: XW033E5 Introduction of Remdesivir Anti-infective into Peripheral Vein, Percutaneous Approach, New Technology Group 5 (ICD-10-PCS; 2020-01-23)
DX: A41.89 Other specified sepsis (principal); U07.1 COVID-19; J12.89 Other viral pneumonia; J96.01 Acute respiratory failure with hypoxia; I47.2 Ventricular tachycardia; N39.0 Urinary tract infection, site not specified; R91.1 Solitary pulmonary nodule; I50.9 Heart failure, unspecified; E66.9 Obesity, unspecified; A41.51 Sepsis due to Escherichia coli [E. coli]; R79.89 Other specified abnormal findings of blood chemistry; E87.6 Hypokalemia; T50.1X5A Adverse effect of loop [high-ceiling] diuretics, initial encounter; Y92.9 Unspecified place or not applicable